=== PATIENT | female | born 1945 | race Caucasian/White ===

== ENCOUNTER 2016-12-10 15:52 | Emergency (ER) | payer MEDICARE ==
[2016-12-10 18:23] LABS: BASO % 0.4 % (0.1-1.2); EOS % 0.4 % (0.7-5.8); GRAN # 5.9 10_X3_uL (1.6-6.1); GRAN % 78.8 % (34.0-71.1); HEMATOCRIT 47.3 % (34-45); LYMPH # 1.3 10_X3_uL (1.2-3.7); LYMPH % 17.3 % (19.3-51.7); MEAN CORPUSCULAR HEMOGLOBIN 32.1 pg (27.0-33.0); MEAN CORPUSCULAR HGB CONC 33.8 g/dL (32.0-36.0); MEAN CORPUSCULAR VOLUME 94.8 fL (79-95); MEAN PLATELET VOLUME 10.5 fl (7.5-11.5); MONO # 0.2 10_X3_uL (0.2-0.9); MONO % 3.1 % (4.7-12.5); PLATELET COUNT 349 x10_3/uL (182-369); RED BLOOD COUNT 4.99 x10_6/uL (3.9-5.2); RED CELL DISTRIBUTION WIDTH 13.2 % (11.7-14.4); WHITE BLOOD COUNT 7.4 x10_3/uL (4.0-10.0)
[2016-12-10 18:41] LABS: ALBUMIN 4.2 gm/dL (3.4-5.0); ALKALINE PHOSPHATASE 46 U/L (50-136); ALT/SGPT 21 U/L (3.5-33.9); AST/SGOT 17 U/L (7.04-26.96); BILIRUBIN,TOTAL 0.29 mg/dL (0.0-1.0); BLOOD UREA NITROGEN 14 mg/dL (7-18); CALCIUM 9.8 mg/dL (8.7-10.7); CARBON DIOXIDE 27 mmol/L (21-32); CREATININE 0.5 mg/dL (0.6-1.3); GLUCOSE,RANDOM 115 mg/dL (70-99); LIPASE 34 U/L (6.75-60.75); SODIUM 140 mmol/L (136-145); TOTAL PROTEIN 6.5 gm/dL (6.4-8.2)
== END 2016-12-10 19:40 | disposition home or self-care (01) ==
LOC: ER 15:52
PROVIDERS: Internal Medicine
DX: R10.13 Epigastric pain (principal); I10 Essential (primary) hypertension; R11.0 Nausea; Z79.02 Long term (current) use of antithrombotics/antiplatelets; Z79.899 Other long term (current) drug therapy
CPT/HCPCS: 36415; 80053; 83690; 85025; 99284; 99284-25

== ENCOUNTER 2017-01-13 18:41 | Emergency (ER) | payer MEDICARE, OTHER | END 2017-01-13 20:03 | disposition home or self-care (01) | LOC: ER 18:41 | DX: J20.9 Acute bronchitis, unspecified (principal); R06.02 Shortness of breath; E07.9 Disorder of thyroid, unspecified; G47.30 Sleep apnea, unspecified; I10 Essential (primary) hypertension; Z86.711 Personal history of pulmonary embolism; Z79.899 Other long term (current) drug therapy; Z79.02 Long term (current) use of antithrombotics/antiplatelets; Z79.82 Long term (current) use of aspirin ==